=== PATIENT | female | born 1995 | race Caucasian/White ===

== ENCOUNTER 2021-03-28 18:09 | Inpatient (IN) | payer BC ==
[~2021-03-28 18:09] MED LIST: Bupivacaine 0.25% 10 ML SDV ONE
[2021-03-28] MEDS ORDERED: Ondansetron 4 MG/2 ML SDV IVPUSH PRN ×2 (18:18→21:29)
[2021-03-28] MEDS ORDERED: Nalbuphine 10 MG/1 ML Vial IVPUSH PRN (18:18)
[2021-03-28] MEDS ORDERED: Oxytocin/Lactated Ringers 10 UNIT/1,000 ML BAG IV SCH (18:30)
--- NOTE | 2021-03-28 19:25 | PCM.LDHP ---
L&D History of Present Illness - General Date of Service: 03/28/21 Admit Problem/Dx: Patient Status Order with Admit Dx/Problem 03/28/21 18:19 Patient Status [ADT] Routine Admission Diagnosis/Problem Admission Diagnosis/Problem Source of Information: Patient History Limitations: Reports: No Limitations - History of Present Illness Introduction:: Suha Moore is a 25-year-old -1-0-1 female at 37 weeks 2 days (PRIMITIVO 04/16/2021) by LMP consistent with a 7-week ultrasound who presents with spontaneous rupture of membranes. She reports that at around 5:15 PM she felt a large pop and then had a large gush of clear fluid. She noticed that there was some bloody mucus discharge with the fluid discharge. She continued to have leaking of the clear fluid until she arrived at the hospital. She reports that she has been having some irregular contractions throughout the day and that they continued after her water had broken. She has been feeling good movement. Timing/Duration: Reports: sudden onset (With large gush of fluid at around 5:15 PM) Location, : Reports: Pelvic Quality: Reports: Pressure Severity: Moderate Improves with: Reports: None Worsens with: Reports: None Associated Symptoms: Reports: vaginal discharge (Small amount of bloody mucus discharge with large amount of clear fluid), vaginal fluid, large amount. Denies: vaginal bleeding Present Illness Comments:: Suha Moore is a 25-year-old -1-0-1 female at 37 weeks 2 days (PRIMITIVO 02/14/2022) by LMP consistent with a 7-week ultrasound with spontaneous rupture of membranes earlier this evening. She has had routine care with Dr. Jacome starting at 7 weeks gestational age. Her has been overall uncomplicated. She received Tdap vaccine on 01/29/2021. She did not receive the influenza or COVID-19 vaccine. 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, 36 weeks, , female , 6 pounds 2 ounces, induced at 36 weeks gestational age due to preeclampsia G2: Current labs Blood type: A+ Antibody screen: Negative First trimester hematocrit/hemoglobin: 41.8%/14.2 on 09/25/2020 Platelets: 184 on 09/25/2020 Rubella status: Not immune Hepatitis B surface antigen: Negative RPR: Negative Hepatitis C: Negative HIV: Negative Gonorrhea: Negative Chlamydia: Negative One hour glucose tolerance test: 127 Second trimester hematocrit/hemoglobin: 34.1%/11.5 on 01/01/2021 Platelets: 244 on 01/01/2021 GBS status: Negative - Related Data Allergies/Adverse Reactions: Allergies Allergy/AdvReac Type Severity Reaction Status Date / Time No Known Allergies Allergy Verified 03/28/21 19:20 Home Medications: Home Meds Pnv,Calcium 72/Iron/Folic Acid [ Vitamin Plus Low Iron] 1 tab PO DAILY 03/28/21 [History] Past Medical History 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: , Other (See Below) (History of preeclampsia in her first ) : 2 Para: 1 - Past Surgical History HEENT Surgical History: Reports: Other (See Below) ([place] teeth) Social & Family History - Tobacco Use Tobacco Use Status *Q: Never Tobacco User - Tobacco Core Measures Tobacco Use/Smoking Within Last 30 Days: No Smokeless Tobacco Use in Last 30 Days: No - Alcohol Use Alcohol Use History: No Alcohol Use in Last Twelve Months: No - Recreational Drug Use Recreational Drug Use: No Drug Use in Last 12 Months: No - Living Situation & Occupation Living situation: Reports: , with Spouse, with Family H&P Review of Systems - Review of Systems: Review Of Systems: See Below General: Denies: Fever, Chills, Malaise, Weakness, Fatigue HEENT: Denies: Headaches, Rhinitis, Post Nasal Drip, Sinus Congestion, Sore Throat, Visual Changes Pulmonary: Denies: Shortness of Breath, Wheezing, Pleuritic Chest Pain, Cough Cardiovascular: Denies: Chest Pain, Palpitations, Dyspnea on Exertion, Orthopnea Gastrointestinal: Denies: Abdominal Pain, Constipation, Diarrhea, Nausea, Vomiting Genitourinary: Denies: Dysuria, Frequency, Burning, Pain, Urgency Musculoskeletal: Reports: Back Pain (and hip pain of ) Skin: Denies: Rash, Lesions Psychiatric: Denies: Depression, Anxiety L&D Exam - Exam Exam: See Below - OB Specific Contraction Duration (sec): 45-60 Contraction Frequency (min): 5-7 Contraction Intensity: Mild to Moderate Movement: Active Heart Tones: Present Heart Tones per Min: 130 (+15 x 15 accelerations, no decelerations) Heart Rate (FHR) Variability: Moderate (6-25 bpm) Presentation: Vertex (And able to feel skull sutures on exam) Estimated Weight: 7 to 7.5 pounds by Rogerio - Cisneros Score Cisneros Score Cervix Position: Anterior Cisneros Score Consistency: Soft Cisneros Score Effacement: 51-70% (60%) Cisneros Score Dilation: > 5 cm (5 cm) Cisneros Score Infant's Station: -3 Cisneros Score Total: 9 - Exam General: Alert, Oriented HEENT: Conjunctiva Clear, EOMI Neck: Supple, Trachea Midline Lungs: Clear to Auscultation, Normal Respiratory Effort Cardiovascular: Regular Rate, Regular Rhythm GI/Abdominal Exam: Soft, Non-Tender, No Distention, Other (Gravid). No: Guarding, Rigid, Rebound Genitourinary: Normal external exam, Other (Small amount of vaginal fluid discharge with cervical exam) Extremities: Normal Inspection, No Pedal Edema Skin: Warm, Dry, Intact Psychiatric: Alert, Normal Affect, Normal Mood - Patient Data Lab Results Last 24 hrs: Laboratory Results - last 24 hr 03/28/21 Range/Units 18:41 WBC 12.48 H (3.98-10.04) K/mm3 RBC 4.20 (3.98-5.22) M/mm3 Hgb 11.5 (11.2-15.7) gm/dl Hct 36.4 (34.1-44.9) % MCV 86.7 (79.4-94.8) fl MCH 27.4 (25.6-32.2) pg MCHC 31.6 L (32.2-35.5) g/dl RDW Std Deviation 41.8 (36.4-46.3) fL Plt Count 233 (182-369) K/mm3 MPV 10.4 (9.4-12.3) fl Neut % (Auto) 74.6 H (34.0-71.1) % Lymph % (Auto) 18.8 L (19.3-51.7) % [place] % (Auto) 4.8 (4.7-12.5) % Eos % (Auto) 1.0 (0.7-5.8) Baso % (Auto) 0.2 (0.1-1.2) % Neut # (Auto) 9.31 H (1.56-6.13) K/mm3 Lymph # (Auto) 2.35 (1.18-3.74) K/mm3 [place] # (Auto) 0.60 H (0.24-0.36) K/mm3 Eos # (Auto) 0.13 (0.04-0.36) K/mm3 Baso # (Auto) 0.02 (0.01-0.08) K/mm3 Result Diagrams: 03/28/21 18:41 - Problem List (1) 37 weeks gestation of SNOMED Code(s): 48018078 ICD Code: Z3A.37 - 37 WEEKS GESTATION OF Status: Acute Current Visit: Yes (2) History of pre-eclampsia in prior , currently in third trimester SNOMED Code(s): 914232780232761, 12839468, 376005337498464 ICD Code: O09.293 - SUPRVSN OF PREG W POOR REPRODCTV OR OBSTET HX, THIRD TRI Status: Acute Current Visit: Yes (3) Rubella non-immune status, antepartum SNOMED Code(s): 036068302 ICD Code: O99.891 - OTH DISEASES AND CONDITIONS COMPLICATING ; Z28.3 - UNDERIMMUNIZATION STATUS Status: Acute Current Visit: Yes Problem List Initiated/Reviewed/Updated: Yes Orders Last 24hrs: Active Orders 24 hr Category Date Time Status Patient Status [ADT] Routine ADT 03/28/21 18:19 Active Activity as Tolerated [RC] PFP Care 03/28/21 18:19 Active Communication Order [RC] ASDIRECTED Care 03/28/21 18:19 Active Heart Tones [RC] ASDIRECTED Care 03/28/21 18:20 Active Non Stress Test [RC] PER UNIT ROUTINE Care 03/28/21 18:19 Active Notify Provider [RC] PFP Care 03/28/21 18:19 Active Notify Provider [RC] PRN Care 03/28/21 18:19 Active Peripheral IV Care [RC] . DIRECTED Care 03/28/21 18:20 Active Vital Signs [RC] PER UNIT ROUTINE Care 03/28/21 18:19 Active Regular Diet [DIET] Diet 03/28/21 Lunch Active BLOOD BANK HOLD SPECIMEN [BBK] Stat Lab 03/28/21 18:18 Ordered CORONAVIRUS COVID-19 JUAN RAMON [MOLEC] Stat Lab 03/28/21 18:45 Received RAPID PLASMA REAGIN,RPR [CHEM] Routine Lab 03/28/21 18:41 Received Lactated Ringers [Ringers, Lactated] 1,000 ml Med 03/28/21 18:30 Active IV ASDIRECTED Nalbuphine [Nubain] Med 03/28/21 18:18 Active 10 mg IVPUSH Q2H PRN Ondansetron [Zofran] Med 03/28/21 18:18 Active 4 mg IVPUSH Q4H PRN Oxytocin/Lactated Ringers [Pitocin in LR 10 Units/1,000 Med 03/28/21 18:30 Active ML] 10 unit in 1,000 ml IV .CONTINUOUS Sodium Chloride 0.9% [Saline Flush] Med 03/28/21 21:00 Active 10 ml FLUSH 0900,2100 Electronic Heart Tones Ext w TOCO [WOMSER] Oth 03/28/21 18:19 Ordered Routine Electronic Heart Tones Internal [WOMSER] Per Unit Oth 03/28/21 18:19 Ordered Routine Peripheral IV Insertion Adult [OM.PC] Routine Oth 03/28/21 18:19 Ordered Resuscitation Status Routine Resus Stat 03/28/21 18:18 Ordered Medication Orders Oxytocin/Lactated Ringer's (Pitocin In Lr 10 Units/1,000 Ml) 10 unit in 1,000 mls @ 500 mls/hr IV .CONTINUOUS SHERIE Lactated Ringer's (Ringers, Lactated) 1,000 mls @ 100 mls/hr IV ASDIRECTED SHERIE Nalbuphine HCl (Nalbuphine 10 Mg/1 Ml Vial) 10 mg IVPUSH Q2H PRN PRN Reason: Pain Ondansetron HCl (Ondansetron 4 Mg/2 Ml Sdv) 4 mg IVPUSH Q4H PRN PRN Reason: Nausea/Vomiting Sodium Chloride (Sodium Chloride 0.9% 10 Ml Syringe) 10 ml FLUSH 0900,2100 [facility] Assessment/Plan Comment:: Suha Moore is a 25-year-old -1-0-1 female at 37 weeks 2 days with sponta neous rupture of membranes with complicated by rubella nonimmune status and history of preeclampsia in first Refer to observation for spontaneous rupture of membranes Start Pitocin for augmentation of labor if patient does not have significant cervical change or regular contractions after approximately 4 hours of labor without augmentation Continuous monitoring Place IV and have Lactated Ringer's at 125 ml/hr May have small amounts of regular diet Activity as tolerated May have epidural as desired Plans to breast-feed after delivery Offer MMR vaccine after delivery due to rubella nonimmune status Anticipate vaginal delivery unless otherwise indicated Po Miguel MD 8:45 PM 03/28/2021
[2021-03-28] MEDS ORDERED: Sodium Chloride 0.9% 10 ML Syringe FLUSH SCH (21:00)
[2021-03-28] MEDS: Lactated Ringers 1,000 ML IV SCH ×3 (21:10→22:58)
[2021-03-28] MEDS ORDERED: fentaNYL 100 MCG/2 ML SDV ONE (21:25)
[2021-03-28] MEDS ORDERED: fentaNYL 100 MCG/2 ML SDV EPIDUR PRN (21:29)
[2021-03-28] MEDS ORDERED: ePHEDrine 50 MG/ML SDV IVPUSH PRN (21:29)
[2021-03-28] MEDS ORDERED: Bupivacaine/fentaNYL/NS 100 ML Bag EPIDUR SCH (21:30)
--- NOTE | 2021-03-28 21:33 | PCM.PREANE ---
Preanesthetic Assessment - Procedure Proposed Procedure: Epidural - Anesthesia/Transfusion/Family Hx Anesthesia History: Prior Anesthesia Without Reaction Family History of Anesthesia Reaction: No Transfusion History: No Prior Transfusion(s) Intubation History: Unknown - Review of Systems General: No Symptoms Pulmonary: No Symptoms Cardiovascular: No Symptoms (history of preeclampsia with prior ) Gastrointestinal: No Symptoms (GERD) Neurological: No Symptoms Other: Reports: None - Physical Assessment NPO Status Date: 03/28/21 NPO Status Time: 17:00 Vital Signs: Last Vital Signs Temp 36.7 C 03/28/21 20:15 Pulse 80 03/28/21 20:15 Resp 16 03/28/21 20:15 BP 121/69 03/28/21 20:15 Pulse Ox 99 03/28/21 20:15 Height: 1.75 m Weight: 82.1 kg ASA Class: 2 Mental Status: Alert & Oriented x3 Airway Class: Mallampati = 2 Dentition: Reports: Normal Dentition, [place] Thyro-Mental Finger Breadths: 3 Mouth Opening Finger Breadths: 3 ROM/Head Extension: Full Lungs: Clear to Auscultation, Normal Respiratory Effort Cardiovascular: Regular Rate, Regular Rhythm, No Murmurs - Lab Values: Laboratory Last Values WBC 12.48 K/mm3 (3.98-10.04) H 03/28/21 18:41 RBC 4.20 M/mm3 (3.98-5.22) 03/28/21 18:41 Hgb 11.5 gm/dl (11.2-15.7) 03/28/21 18:41 Hct 36.4 % (34.1-44.9) 03/28/21 18:41 MCV 86.7 fl (79.4-94.8) 03/28/21 18:41 MCH 27.4 pg (25.6-32.2) 03/28/21 18:41 MCHC 31.6 g/dl (32.2-35.5) L 03/28/21 18:41 RDW Std Deviation 41.8 fL (36.4-46.3) 03/28/21 18:41 Plt Count 233 K/mm3 (182-369) 03/28/21 18:41 MPV 10.4 fl (9.4-12.3) 03/28/21 18:41 Neut % (Auto) 74.6 % (34.0-71.1) H 03/28/21 18:41 Lymph % (Auto) 18.8 % (19.3-51.7) L 03/28/21 18:41 [place] % (Auto) 4.8 % (4.7-12.5) 03/28/21 18:41 Eos % (Auto) 1.0 (0.7-5.8) 03/28/21 18:41 Baso % (Auto) 0.2 % (0.1-1.2) 03/28/21 18:41 Neut # (Auto) 9.31 K/mm3 (1.56-6.13) H 03/28/21 18:41 Lymph # (Auto) 2.35 K/mm3 (1.18-3.74) 03/28/21 18:41 [place] # (Auto) 0.60 K/mm3 (0.24-0.36) H 03/28/21 18:41 Eos # (Auto) 0.13 K/mm3 (0.04-0.36) 03/28/21 18:41 Baso # (Auto) 0.02 K/mm3 (0.01-0.08) 03/28/21 18:41 RPR Non-reactive (NONREACTIVE) 03/28/21 18:41 SARS-CoV-2 RNA (JUAN RAMON) Negative (NEGATIVE) 03/28/21 18:45 Above labs reviewed and noted and within acceptable ranges to proceed with epidural. 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: , 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 (See Below) (History of preeclampsia in her first ) - Infectious Disease History Infectious Disease History: Reports: Chicken Pox - Past Surgical History HEENT Surgical History: Reports: Other (See Below) ([place] teeth) - SUBSTANCE USE Tobacco Use Status *Q: Never Tobacco User Tobacco Use Within Last Twelve Months: Cigarettes Recreational Drug Use History: No - HOME MEDS Home Medications: Home Meds Pnv,Calcium 72/Iron/Folic Acid [ Vitamin Plus Low Iron] 1 tab PO DAILY 03/28/21 [History] - CURRENT (IN HOUSE) MEDS Current Meds: Current Medications Ephedrine Sulfate (Ephedrine 50 Mg/Ml Sdv) 5 mg IVPUSH ASDIRECTED PRN PRN Reason: Hypotension Fentanyl (Fentanyl 100 Mcg/2 Ml Sdv) 100 mcg EPIDUR Q3H PRN PRN Reason: Pain Fentanyl/Bupivacaine HCl (Bupivacaine/Fentanyl/Ns 100 Ml Bag) 100 ml EPIDUR ASDIRECTED [facility] Oxytocin/Lactated Ringer's (Pitocin In Lr 10 Units/1,000 Ml) 10 unit in 1,000 mls @ 500 mls/hr IV .CONTINUOUS SHERIE Lactated Ringer's (Ringers, Lactated) 1,000 mls @ 100 mls/hr IV ASDIRECTED [facility] Last Admin: 03/28/21 21:10 Dose: 999 mls/hr Documented by: Miscellaneous Medication (Phenylephrine Hcl In 0.9% Nacl 1 Mg/10 Ml Syringe) 0.1 mg IVPUSH Q10M PRN PRN Reason: Hypotension Nalbuphine HCl (Nalbuphine 10 Mg/1 Ml Vial) 10 mg IVPUSH Q2H PRN PRN Reason: Pain Ondansetron HCl (Ondansetron 4 Mg/2 Ml Sdv) 4 mg IVPUSH Q4H PRN PRN Reason: Nausea/Vomiting Ondansetron HCl (Ondansetron 4 Mg/2 Ml Sdv) 4 mg IVPUSH ONETIME PRN PRN Reason: Nausea/Vomiting Sodium Chloride (Sodium Chloride 0.9% 10 Ml Syringe) 10 ml FLUSH 0900,2100 [facility] Discontinued Medications Fentanyl (Fentanyl 100 Mcg/2 Ml Sdv) Confirm Administered Dose 100 mcg .ROUTE .STK-MED ONE Stop: 03/28/21 21:26
[2021-03-28] MEDS ORDERED: diphenhydrAMINE 50 MG/ML SDV IVPUSH ONE (22:19)
--- NOTE | 2021-03-29 00:28 | PCM.DEL ---
L & D Note - General Info Date of Service: 03/28/21 Mother's Due Date: 04/16/21 - Delivery Note Labor: Spontaneous Delivery Outcome: Livebirth Infant Delivery Method: Spontaneous Vaginal Delivery-Single Presentation: Right Occiput Anterior (DANDRE) Nuchal Cord: Present (x2 and body cord x1, reduced after delivery of the infant) Anesthesia Type: Epidural Amniotic Fluid Description: Clear Episiotomy Type: None Laceration: 1st Degree (midline perineal lacerations x2 that were repaired wtih 4-0 Vicryl, several other 1st degree vaginal lacerations were hemostatic and not repaired) Suture type: Vicryl Suture size: 4-0 Placenta: Intact, Spontaneous Cord: 3 Vessels Estimated Blood Loss: 150 Resuscitation Needed: Yes [place]: Bulb Syringe, Stimulated, Warmed, [place] Used Provider: Erika Jacome Score 1 min: 8 Score 5 min: 9 Second Stage Interventions: Reports: Pushing Effectively, Pushing, Stirrups/Leg Supports Delivery Comments (Free Text/Narrative):: Stage I: Suha Moore was admitted for spontaneous rupture of membranes with clear fluid at home. On admission her cervix was dilated to 5 cm. She was GBS negative. She began mario spontaneously after several hours of monitoring and began to make spontaneous cervical change. She was given an epidural for anesthesia. She progressed to complete and pushing. Stage II: On 03/28/2021 she had a normal vaginal delivery of a live male infant at 23:44. Apgars of 8 & 9. Weight of 3090 g (6 lbs 13.0 oz). Length of 20.5 inches. There was a nuchal cord x2 and a body cord x1 that were reduced after delivery of the . was delivered in DANDRE position. The cord was doubly clamped and cut by father the infant at approximately 90 seconds of life. was placed on mother's abdomen. Stage III: She had a spontaneous delivery of an intact placenta in [place] presentation. Three vessel cord. She was given pitocin and fundal massage. She had first-degree midline perineal lacerations x2 that were repaired with 4-0 Vicryl. There were several other first-degree vaginal lacerations that were hemostatic and not repaired. Mom and baby were stable to recovery. EBL of 150 mL. Po Miguel MD 12:28 AM 03/29/2021 - General Info Date of Service: 03/29/21 - Patient Data Vitals - Most Recent: Last Vital Signs Temp 36.7 C 03/28/21 20:15 Pulse 80 03/28/21 20:15 Resp 16 03/28/21 20:15 BP 121/69 03/28/21 20:15 Pulse Ox 99 03/28/21 20:15 Weight - Most Recent: 82.1 kg I&O - Last 24 Hours: Intake & Output 03/28/21 03/28/21 03/29/21 14:59 22:59 06:59 Intake Total 1000 1000 Output Total 125 Balance 1000 875 Lab Results Last 24 Hours: Laboratory Results - last 24 hr 03/28/21 03/28/21 03/28/21 Range/Units 18:41 18:41 18:45 WBC 12.48 H (3.98-10.04) K/mm3 RBC 4.20 (3.98-5.22) M/mm3 Hgb 11.5 (11.2-15.7) gm/dl Hct 36.4 (34.1-44.9) % MCV 86.7 (79.4-94.8) fl MCH 27.4 (25.6-32.2) pg MCHC 31.6 L (32.2-35.5) g/dl RDW Std Deviation 41.8 (36.4-46.3) fL Plt Count 233 (182-369) K/mm3 MPV 10.4 (9.4-12.3) fl Neut % (Auto) 74.6 H (34.0-71.1) % Lymph % (Auto) 18.8 L (19.3-51.7) % [place] % (Auto) 4.8 (4.7-12.5) % Eos % (Auto) 1.0 (0.7-5.8) Baso % (Auto) 0.2 (0.1-1.2) % Neut # (Auto) 9.31 H (1.56-6.13) K/mm3 Lymph # (Auto) 2.35 (1.18-3.74) K/mm3 [place] # (Auto) 0.60 H (0.24-0.36) K/mm3 Eos # (Auto) 0.13 (0.04-0.36) K/mm3 Baso # (Auto) 0.02 (0.01-0.08) K/mm3 RPR Non-reactive (NONREACTIVE) SARS-CoV-2 RNA (JUAN RAMON) Negative (NEGATIVE) Med Orders - Current: Current Medications Ephedrine Sulfate (Ephedrine 50 Mg/Ml Sdv) 5 mg IVPUSH ASDIRECTED PRN PRN Reason: Hypotension Fentanyl (Fentanyl 100 Mcg/2 Ml Sdv) 100 mcg EPIDUR Q3H PRN PRN Reason: Pain Last Admin: 03/28/21 21:40 Dose: 100 mcg Documented by: Fentanyl/Bupivacaine HCl (Bupivacaine/Fentanyl/Ns 100 Ml Bag) 100 ml EPIDUR ASDIRECTED SHERIE Last Admin: 03/28/21 21:40 Dose: 100 ml Documented by: Oxytocin/Lactated Ringer's (Pitocin In Lr 10 Units/1,000 Ml) 10 unit in 1,000 mls @ 500 mls/hr IV .CONTINUOUS [facility] Last Admin: 03/28/21 23:44 Dose: 500 mls/hr Documented by: Lactated Ringer's (Ringers, Lactated) 1,000 mls @ 100 mls/hr IV ASDIRECTED [facility] Last Admin: 03/28/21 22:58 Dose: 999 mls/hr Documented by: Miscellaneous Medication (Phenylephrine Hcl In 0.9% Nacl 1 Mg/10 Ml Syringe) 0.1 mg IVPUSH Q10M PRN PRN Reason: Hypotension Nalbuphine HCl (Nalbuphine 10 Mg/1 Ml Vial) 10 mg IVPUSH Q2H PRN PRN Reason: Pain Ondansetron HCl (Ondansetron 4 Mg/2 Ml Sdv) 4 mg IVPUSH Q4H PRN PRN Reason: Nausea/Vomiting Ondansetron HCl (Ondansetron 4 Mg/2 Ml Sdv) 4 mg IVPUSH ONETIME PRN PRN Reason: Nausea/Vomiting Sodium Chloride (Sodium Chloride 0.9% 10 Ml Syringe) 10 ml FLUSH 0900,2100 [facility] Last Admin: 03/28/21 22:18 Dose: Not Given Documented by: Discontinued Medications Diphenhydramine HCl (Diphenhydramine 50 Mg/Ml Sdv) 25 mg IVPUSH ONETIME ONE Stop: 03/28/21 22:20 Last Admin: 03/28/21 22:22 Dose: 25 mg Documented by: Fentanyl (Fentanyl 100 Mcg/2 Ml Sdv) Confirm Administered Dose 100 mcg .ROUTE .STK-MED ONE Stop: 03/28/21 21:26 Last Admin: 03/28/21 22:18 Dose: Not Given Documented by: - Exam Urinary Catheter Total Time: 0Days 1Hours - Problem List & Annotations (1) 37 weeks gestation of SNOMED Code(s): 04777793 Code(s): Z3A.37 - 37 WEEKS GESTATION OF Status: Acute Current Visit: Yes (2) History of pre-eclampsia in prior , currently in third trimester SNOMED Code(s): 665919171567475, 07553202, 140732782421741 Code(s): O09.293 - SUPRVSN OF PREG W POOR REPRODCTV OR OBSTET HX, THIRD TRI Status: Acute Current Visit: Yes (3) Rubella non-immune status, antepartum SNOMED Code(s): 593342791 Code(s): O99.891 - OTH DISEASES AND CONDITIONS COMPLICATING ; Z28.3 - UNDERIMMUNIZATION STATUS Status: Acute Current Visit: Yes (4) Vaginal delivery SNOMED Code(s): 099010118 Code(s): O80 - ENCOUNTER FOR FULL-TERM UNCOMPLICATED DELIVERY Status: Acute Current Visit: Yes (5) First degree perineal laceration during delivery SNOMED Code(s): 882181859 Code(s): O70.0 - FIRST DEGREE PERINEAL LACERATION DURING DELIVERY Status: Acute Current Visit: Yes - Problem List Review Problem List Initiated/Reviewed/Updated: Yes - My Orders Last 24 Hours: My Active Orders 03/28/21 Lunch Regular Diet [DIET] 03/28/21 18:18 BLOOD BANK HOLD SPECIMEN [BBK] Stat Nalbuphine [Nubain] 10 mg IVPUSH Q2H PRN Ondansetron [Zofran] 4 mg IVPUSH Q4H PRN Resuscitation Status Routine 03/28/21 18:19 Patient Status [ADT] Routine Activity as Tolerated [RC] PFP Communication Order [RC] ASDIRECTED Notify Provider [RC] PFP Notify Provider [RC] PRN Electronic Heart Tones Ext w TOCO [WOMSER] Routine Electronic Heart Tones Internal [WOMSER] Per Unit Routine Peripheral IV Insertion Adult [OM.PC] Routine 03/28/21 18:20 Peripheral IV Care [RC] Q4HR 03/28/21 18:30 Lactated Ringers [Ringers, Lactated] 1,000 ml IV ASDIRECTED Oxytocin/Lactated Ringers [Pitocin in LR 10 Units/1,000 ML] 10 unit in 1,000 ml IV .CONTINUOUS 03/28/21 21:00 Sodium Chloride 0.9% [Saline Flush] 10 ml FLUSH 0900,2100 03/29/21 00:14 Patient Status Manage Transfer [TRANSFER] Routine - Plan Plan:: Suha Moore is a 25-year-old G2 now P1-1-0-2 female status post , PPD #1 complicated by rubella nonimmune status and history of preeclampsia in first Admit to inpatient following normal spontaneous vaginal delivery Continue Pitocin per unit protocol following delivery of placenta and lactated Ringer's until tolerating regular diet Regular diet Vitals per unit routine Ibuprofen and Tylenol for pain control Assist with breast-feeding as needed Continue to monitor lochia Offer MMR vaccine prior to discharge secondary to rubella nonimmune status Anticipate discharge home on day #2 due to late time of delivery of at 23:44 Po Miguel MD 12:28 AM 03/29/2021
[2021-03-29] MEDS ORDERED: Docusate Sodium 100 MG Cap PO PRN (01:30)
[2021-03-29] MEDS ORDERED: Witch Hazel Medicated Pads 40/Jar TOP PRN (01:30)
[2021-03-29] MEDS ORDERED: Oxytocin/Lactated Ringers 10 UNIT/1,000 ML BAG IV SCH (01:30)
[2021-03-29] MEDS ORDERED: Hydrocortisone Acetate 25 MG Supp RECTAL PRN (01:30)
[2021-03-29] MEDS ORDERED: Acetaminophen 325 MG Tab PO PRN (01:30)
[2021-03-29] MEDS ORDERED: Benzocaine/Menthol 20%-0.5% Spray 78 GM Cannister TOP PRN (01:30)
[2021-03-29] MEDS ORDERED: Measles, Mumps & Rubella Vaccine 0.5 ML SDV SUBCUT ONE (01:30)
[2021-03-29] MEDS ORDERED: Magnesium Hydroxide 400 MG/5 ML Susp 30 ML Cup PO PRN (01:30)
[2021-03-29] MEDS: Ibuprofen 600 MG Tab PO PRN ×2 (02:34→21:15)
--- NOTE | 2021-03-29 07:19 | PCM.PNPP ---
- General Info Date of Service: 03/29/21 Functional Status: Reports: Pain Controlled - Review of Systems General: Reports: No Symptoms HEENT: Reports: No Symptoms Pulmonary: Reports: No Symptoms Cardiovascular: Reports: No Symptoms Gastrointestinal: Reports: No Symptoms Genitourinary: Reports: No Symptoms Musculoskeletal: Reports: No Symptoms Skin: Reports: No Symptoms Neurological: Reports: No Symptoms Psychiatric: Reports: No Symptoms - General Info Date of Service: 03/29/21 - Patient Data Vital Signs - Most Recent: Last Vital Signs Temp 37.2 C 03/29/21 05:10 Pulse 62 03/29/21 05:10 Resp 14 03/29/21 05:10 BP 115/63 03/29/21 05:10 Pulse Ox 97 03/29/21 05:10 Weight - Most Recent: 82.1 kg I&O - Last 24 Hours: Intake & Output 03/28/21 03/29/21 03/29/21 22:59 06:59 14:59 Intake Total 1000 3000 Output Total 200 Balance 1000 2800 Lab Results - Last 24 Hours: Laboratory Results - last 24 hr 03/28/21 03/28/21 03/28/21 Range/Units 18:41 18:41 18:45 WBC 12.48 H (3.98-10.04) K/mm3 RBC 4.20 (3.98-5.22) M/mm3 Hgb 11.5 (11.2-15.7) gm/dl Hct 36.4 (34.1-44.9) % MCV 86.7 (79.4-94.8) fl MCH 27.4 (25.6-32.2) pg MCHC 31.6 L (32.2-35.5) g/dl RDW Std Deviation 41.8 (36.4-46.3) fL Plt Count 233 (182-369) K/mm3 MPV 10.4 (9.4-12.3) fl Neut % (Auto) 74.6 H (34.0-71.1) % Lymph % (Auto) 18.8 L (19.3-51.7) % [place] % (Auto) 4.8 (4.7-12.5) % Eos % (Auto) 1.0 (0.7-5.8) Baso % (Auto) 0.2 (0.1-1.2) % Neut # (Auto) 9.31 H (1.56-6.13) K/mm3 Lymph # (Auto) 2.35 (1.18-3.74) K/mm3 [place] # (Auto) 0.60 H (0.24-0.36) K/mm3 Eos # (Auto) 0.13 (0.04-0.36) K/mm3 Baso # (Auto) 0.02 (0.01-0.08) K/mm3 RPR Non-reactive (NONREACTIVE) SARS-CoV-2 RNA (JUAN RAMON) Negative (NEGATIVE) Med Orders - Current: Current Medications Acetaminophen (Acetaminophen 325 Mg Tab) 650 mg PO Q6H PRN PRN Reason: mild pain or fever Benzocaine/Menthol (Benzocaine/Menthol 20%-0.5% [place] 78 Gm Cannister) 0 gm TOP ASDIRECTED PRN PRN Reason: Perineal Comfort Measure Last Admin: 03/29/21 02:34 Dose: 1 can Documented by: Docusate Sodium (Docusate Sodium 100 Mg Cap) 100 mg PO BID PRN PRN Reason: Constipation Last Admin: 03/29/21 02:34 Dose: 100 mg Documented by: Hydrocortisone Acetate (Hydrocortisone Acetate 25 Mg Supp) 25 mg RECTAL BID PRN PRN Reason: Hemorrhoid pain Oxytocin/Lactated Ringer's (Pitocin In Lr 10 Units/1,000 Ml) 10 unit in 1,000 mls @ 100 mls/hr IV TITRATE SHERIE; Protocol Ibuprofen (Ibuprofen 600 Mg Tab) 600 mg PO Q6H PRN PRN Reason: Mild pain or fever Last Admin: 03/29/21 02:34 Dose: 600 mg Documented by: Magnesium Hydroxide (Magnesium Hydroxide 400 Mg/5 Ml Susp 30 Ml Cup) 30 ml PO BEDTIME PRN PRN Reason: Constipation Witch Vilma (Witch Vilma Medicated Pads 40/Jar) 1 pad TOP ASDIRECTED PRN PRN Reason: Perineal Comfort Measure Last Admin: 03/29/21 02:34 Dose: 1 tub Documented by: Discontinued Medications Diphenhydramine HCl (Diphenhydramine 50 Mg/Ml Sdv) 25 mg IVPUSH ONETIME ONE Stop: 03/28/21 22:20 Last Admin: 03/28/21 22:22 Dose: 25 mg Documented by: Ephedrine Sulfate (Ephedrine 50 Mg/Ml Sdv) 5 mg IVPUSH ASDIRECTED PRN PRN Reason: Hypotension Fentanyl (Fentanyl 100 Mcg/2 Ml Sdv) Confirm Administered Dose 100 mcg .ROUTE .STK-MED ONE Stop: 03/28/21 21:26 Last Admin: 03/28/21 22:18 Dose: Not Given Documented by: Fentanyl (Fentanyl 100 Mcg/2 Ml Sdv) 100 mcg EPIDUR Q3H PRN PRN Reason: Pain Last Admin: 03/28/21 21:40 Dose: 100 mcg Documented by: Fentanyl/Bupivacaine HCl (Bupivacaine/Fentanyl/Ns 100 Ml Bag) 100 ml EPIDUR ASDIRECTED [facility] Last Admin: 03/28/21 21:40 Dose: 100 ml Documented by: Oxytocin/Lactated Ringer's (Pitocin In Lr 10 Units/1,000 Ml) 10 unit in 1,000 mls @ 500 mls/hr IV .CONTINUOUS [facility] Last Admin: 03/28/21 23:44 Dose: 500 mls/hr Documented by: Lactated Ringer's (Ringers, Lactated) 1,000 mls @ 100 mls/hr IV ASDIRECTED [facility] Last Admin: 03/28/21 22:58 Dose: 999 mls/hr Documented by: Measles/Mumps/Rubella Vaccine Live (Measles, Mumps & Rubella Vaccine 0.5 Ml Sdv) 0.5 ml SUBCUT .ONCE ONE Stop: 03/29/21 01:31 Miscellaneous Medication (Phenylephrine Hcl In 0.9% Nacl 1 Mg/10 Ml Syringe) 0.1 mg IVPUSH Q10M PRN PRN Reason: Hypotension Nalbuphine HCl (Nalbuphine 10 Mg/1 Ml Vial) 10 mg IVPUSH Q2H PRN PRN Reason: Pain Ondansetron HCl (Ondansetron 4 Mg/2 Ml Sdv) 4 mg IVPUSH Q4H PRN PRN Reason: Nausea/Vomiting Ondansetron HCl (Ondansetron 4 Mg/2 Ml Sdv) 4 mg IVPUSH ONETIME PRN PRN Reason: Nausea/Vomiting Sodium Chloride (Sodium Chloride 0.9% 10 Ml Syringe) 10 ml FLUSH 0900,2100 [facility] Last Admin: 03/28/21 22:18 Dose: Not Given Documented by: - Interaction Support Person: - Recovery Exam Fundal Tone: Firm Fundal Level: 2 Fingerbreadths Below Umbilicus Fundal Placement: Midline Lochia Amount: Scant Lochia Color: Rubra/Red Perineum Description: Other (see below) Other Perinuem Description: 1st degree laceration with repair Episiotomy/Laceration: Approximated Bladder Status: Voiding - Exam General: Alert, Oriented HEENT: Pupils Equal Neck: Supple GI/Abdominal Exam: Normal Bowel Sounds, Soft, Non-Tender, No Organomegaly, No Distention, No Abnormal Bruit, No Mass Extremities: Normal Inspection, Normal Range of Motion, Non-Tender, No Pedal Edema, Normal Capillary Refill Skin: Warm, Dry, Intact Neurological: No New Focal Deficit Psy/Mental Status: Alert, Normal Affect, Normal Mood - Problem List Review Problem List Initiated/Reviewed/Updated: Yes - Assessment Assessment:: PPD1 doing well No complaints. Tired. Minimal bleeding. Likely home tomorrow
--- NOTE | 2021-03-30 06:19 | PCM.DCSUM1 ---
Discharge Summary - Hospital Course Brief History: Uncomplicated course. Diagnosis: Stroke: No - Discharge Data Discharge Date: 03/30/21 Discharge Disposition: Home, Self-Care 01 Condition: Good - Referral to Home Health Primary Care Physician: Erika Jacome MD - Patient Instructions Diet: Usual Diet as Tolerated Activity: No Strenuous Activities Driving: May Drive Today Notify Provider of: Fever, Increased Pain, Swelling and Redness, Drainage, Nausea and/or Vomiting - Discharge Plan *PRESCRIPTION DRUG MONITORING PROGRAM REVIEWED*: No *COPY OF PRESCRIPTION DRUG MONITORING REPORT IN PATIENT DEDE: No Home Medications: Home Meds Pnv,Calcium 72/Iron/Folic Acid [ Vitamin Plus Low Iron] 1 tab PO DAILY 03/28/21 [History] Referrals: Erika Jacome MD [Primary Care Provider] - (2 weeks) - Discharge Summary/Plan Comment DC Time >30 min.: No Total # of Minutes for Discharge Time: 15 - General Info Date of Service: 03/30/21 Functional Status: Reports: Pain Controlled - Review of Systems General: Reports: No Symptoms HEENT: Reports: No Symptoms Pulmonary: Reports: No Symptoms Cardiovascular: Reports: No Symptoms Gastrointestinal: Reports: No Symptoms Genitourinary: Reports: No Symptoms Musculoskeletal: Reports: No Symptoms Skin: Reports: No Symptoms Neurological: Reports: No Symptoms Psychiatric: Reports: No Symptoms - Patient Data Vitals - Most Recent: Last Vital Signs Temp 36.9 C 03/30/21 04:31 Pulse 60 03/30/21 04:31 Resp 16 03/30/21 04:31 BP 112/64 03/30/21 04:31 Pulse Ox 98 03/30/21 04:31 Weight - Most Recent: 82.1 kg Med Orders - Current: Current Medications Acetaminophen (Acetaminophen 325 Mg Tab) 650 mg PO Q6H PRN PRN Reason: mild pain or fever Benzocaine/Menthol (Benzocaine/Menthol 20%-0.5% [place] 78 Gm Cannister) 0 gm TOP ASDIRECTED PRN PRN Reason: Perineal Comfort Measure Last Admin: 03/29/21 02:34 Dose: 1 can Documented by: Docusate Sodium (Docusate Sodium 100 Mg Cap) 100 mg PO BID PRN PRN Reason: Constipation Last Admin: 03/29/21 02:34 Dose: 100 mg Documented by: Hydrocortisone Acetate (Hydrocortisone Acetate 25 Mg Supp) 25 mg RECTAL BID PRN PRN Reason: Hemorrhoid pain Oxytocin/Lactated Ringer's (Pitocin In Lr 10 Units/1,000 Ml) 10 unit in 1,000 mls @ 100 mls/hr IV TITRATE SHERIE; Protocol Ibuprofen (Ibuprofen 600 Mg Tab) 600 mg PO Q6H PRN PRN Reason: Mild pain or fever Last Admin: 03/29/21 21:15 Dose: 600 mg Documented by: Magnesium Hydroxide (Magnesium Hydroxide 400 Mg/5 Ml Susp 30 Ml Cup) 30 ml PO BEDTIME PRN PRN Reason: Constipation Witch Vilma (Witch Vilma Medicated Pads 40/Jar) 1 pad TOP ASDIRECTED PRN PRN Reason: Perineal Comfort Measure Last Admin: 03/29/21 02:34 Dose: 1 tub Documented by: Discontinued Medications Bupivacaine HCl (Bupivacaine 0.25% 10 Ml Sdv) 10 ml .ROUTE .STK-MED ONE Stop: 03/28/21 15:01 Diphenhydramine HCl (Diphenhydramine 50 Mg/Ml Sdv) 25 mg IVPUSH ONETIME ONE Stop: 03/28/21 22:20 Last Admin: 03/28/21 22:22 Dose: 25 mg Documented by: Ephedrine Sulfate (Ephedrine 50 Mg/Ml Sdv) 5 mg IVPUSH ASDIRECTED PRN PRN Reason: Hypotension Fentanyl (Fentanyl 100 Mcg/2 Ml Sdv) Confirm Administered Dose 100 mcg .ROUTE .STK-MED ONE Stop: 03/28/21 21:26 Last Admin: 03/28/21 22:18 Dose: Not Given Documented by: Fentanyl (Fentanyl 100 Mcg/2 Ml Sdv) 100 mcg EPIDUR Q3H PRN PRN Reason: Pain Last Admin: 03/28/21 21:40 Dose: 100 mcg Documented by: Fentanyl/Bupivacaine HCl (Bupivacaine/Fentanyl/Ns 100 Ml Bag) 100 ml EPIDUR ASDIRECTED SHERIE Last Admin: 03/28/21 21:40 Dose: 100 ml Documented by: Oxytocin/Lactated Ringer's (Pitocin In Lr 10 Units/1,000 Ml) 10 unit in 1,000 mls @ 500 mls/hr IV .CONTINUOUS SHERIE Last Admin: 03/28/21 23:44 Dose: 500 mls/hr Documented by: Lactated Ringer's (Ringers, Lactated) 1,000 mls @ 100 mls/hr IV ASDIRECTED [facility] Last Admin: 03/28/21 22:58 Dose: 999 mls/hr Documented by: Measles/Mumps/Rubella Vaccine Live (Measles, Mumps & Rubella Vaccine 0.5 Ml Sdv) 0.5 ml SUBCUT .ONCE ONE Stop: 03/29/21 01:31 Miscellaneous Medication (Phenylephrine Hcl In 0.9% Nacl 1 Mg/10 Ml Syringe) 0.1 mg IVPUSH Q10M PRN PRN Reason: Hypotension Nalbuphine HCl (Nalbuphine 10 Mg/1 Ml Vial) 10 mg IVPUSH Q2H PRN PRN Reason: Pain Ondansetron HCl (Ondansetron 4 Mg/2 Ml Sdv) 4 mg IVPUSH Q4H PRN PRN Reason: Nausea/Vomiting Ondansetron HCl (Ondansetron 4 Mg/2 Ml Sdv) 4 mg IVPUSH ONETIME PRN PRN Reason: Nausea/Vomiting Sodium Chloride (Sodium Chloride 0.9% 10 Ml Syringe) 10 ml FLUSH 0900,2100 [facility] Last Admin: 03/28/21 22:18 Dose: Not Given Documented by: - Exam General: Reports: Alert, Oriented HEENT: Reports: Pupils Equal, Pupils Reactive, EOMI, Mucous Membr. Moist/[place] Neck: Reports: Supple Lungs: Reports: Clear to Auscultation, Normal Respiratory Effort Cardiovascular: Reports: Regular Rate, Regular Rhythm GI/Abdominal Exam: Normal Bowel Sounds, Soft, Non-Tender, No Organomegaly, No Distention, No Abnormal Bruit, No Mass Rectal (Female) Exam: Normal Exam, Normal Rectal Tone Back Exam: Reports: Normal Inspection, Full Range of Motion Extremities: Normal Inspection, Normal Range of Motion, Non-Tender, No Pedal Edema, Normal Capillary Refill Skin: Reports: Warm, Dry, Intact Neurological: Reports: No New Focal Deficit Psy/Mental Status: Reports: Alert
== END 2021-03-30 09:00 | disposition home or self-care (01) | DRG 560 ==
LOC: JD.OBCHECK 18:09 → JD.OB 18:13 → JD.OBCHECK 18:18 → JD.OB 18:19 → OBSVTOIN 23:44 → JD.MS 23:45 → JD.OB 03-29 13:22
PROVIDERS: ADMIT Obstetrics & Gynecology; ATTEND Obstetrics & Gynecology
PROC: 10907ZC Drainage of Amniotic Fluid, Therapeutic from Products of Conception, Via Natural or Artificial Opening (ICD-10-PCS; principal; 2021-03-28)
PROC: 0HQ9XZZ Repair Perineum Skin, External Approach (ICD-10-PCS; principal; 2021-03-28)
PROC: 10E0XZZ Delivery of Products of Conception, External Approach (ICD-10-PCS; principal; 2021-03-28)
PROC: 3E0R3BZ Introduction of Anesthetic Agent into Spinal Canal, Percutaneous Approach (ICD-10-PCS; principal; 2021-03-28)
PROC: 00HU33Z Insertion of Infusion Device into Spinal Canal, Percutaneous Approach (ICD-10-PCS; principal; 2021-03-28)
DX: O69.81X0 Labor and delivery complicated by cord around neck, without compression, not applicable or unspecified (principal); O70.0 First degree perineal laceration during delivery; Z20.822 Contact with and (suspected) exposure to COVID-19; Z3A.37 37 weeks gestation of pregnancy; Z37.0 Single live birth
CPT/HCPCS: 36415; 51702; 59025; 59409; 85025; 86592; A9270-GY; J1200; J2590; J3010; J3490; J7120; U0002